=== PATIENT | female | born 1990 | race Caucasian/White ===

== ENCOUNTER → 2017-04-01 15:52 | Outpatient (CLI) | payer OTHER, SELFPAY | PROVIDERS: Visit Provider Obstetrics & Gynecology | DX: M54.5 Low back pain (principal); R30.0 Dysuria | CPT/HCPCS: 87086 ==

== ENCOUNTER → 2017-06-14 08:58 | Outpatient (CLI) | payer OTHER, SELFPAY ==
[2017-06-14 10:48] LABS: Hematocrit 32.5 % (37-47); Hemoglobin 10.6 g/dl (12.0-15.0); Mean Corp Hgb Conc 32.6 g/gl (32-36); Mean Corpuscular Hgb 30.6 pg (27.0-32.0); Mean Corpuscular Volume 93.9 fL (81-99); Mean Platelet Vol. 9.1 fl (6.2-12.0); Platelet Count 249 K/mm3 (150-450); RBC Distribution Width CV 12.5 % (11.6-14.6); RBC Distribution Width SD 41.7 fl (35.1-43.9); Red Blood Count 3.46 M/mm3 (4.2-5.4); White Blood Count 10.7 K/mm3 (4.4-11.0)
[2017-06-14 10:49] LABS: Scan Indicated on CBC? Y/N NO
[2017-06-14 10:54] LABS: Glucose Challenge Gest 1H 50g 85 mg/dL (70-140)
== END ==
PROVIDERS: Visit Provider Obstetrics & Gynecology
DX: Z34.83 Encounter for supervision of other normal pregnancy, third trimester (principal)
CPT/HCPCS: 36415; 82950; 85027

== ENCOUNTER → 2017-07-14 17:15 | Outpatient (CLI) | payer OTHER, SELFPAY ==
--- NOTE | 2017-07-14 17:15 | DT_ITS ---
This patient was seen during an EMR downtime July 12, 2017 - July 19, 2017. This patient may have a combination of paper and electronic documentation or all paper documentation. All documentation is viewable within the e-chart portion of [facility] for each patient visit.
[2017-07-17 06:45] LABS: ROM Internal Control Test YES-OK TO RESULT pt. (Internal QC); ROM Patient Test Negative (Negative)
== END ==
PROVIDERS: Family Provider Internal Medicine; PCP Internal Medicine; Visit Provider Obstetrics & Gynecology
DX: O47.9 False labor, unspecified (principal); Z3A.00 Weeks of gestation of pregnancy not specified
CPT/HCPCS: 59025; 59050; 84112; 99218; G0378

== ENCOUNTER → 2017-07-28 14:00 | Outpatient (CLI) | payer OTHER, SELFPAY ==
[2017-07-28 16:59] LABS: Group B Strep DNA By PCR POSITIVE (Negative); Probe Check PASS
== END ==
PROVIDERS: Visit Provider Obstetrics & Gynecology
DX: Z36.85 Encounter for antenatal screening for Streptococcus B (principal)
CPT/HCPCS: 87653

== ENCOUNTER 2017-08-23 14:10 | Inpatient (IN) | payer SELFPAY ==
[2017-08-23 14:32] VITALS: BMI 32.8
[2017-08-23] MEDS: Lactated Ringers 1,000 ML 50 ML IV (14:45)
[2017-08-23 15:01] LABS: Hematocrit 35.9 % (37-47); Hemoglobin 12.1 g/dl (12.0-15.0); Mean Corp Hgb Conc 33.7 g/gl (32-36); Mean Corpuscular Hgb 31.1 pg (27.0-32.0); Mean Corpuscular Volume 92.3 fL (81-99); Mean Platelet Vol. 9.9 fl (6.2-12.0); Platelet Count 213 K/mm3 (150-450); RBC Distribution Width CV 16.2 % (11.6-14.6); RBC Distribution Width SD 53.5 fl (35.1-43.9); Red Blood Count 3.89 M/mm3 (4.2-5.4); White Blood Count 11.7 K/mm3 (4.4-11.0)
[2017-08-23 15:02] LABS: Scan Indicated on CBC? Y/N NO
[2017-08-23] MEDS: Nalbuphine 10 MG/ML Ampul IV (15:13)
[2017-08-23] MEDS: Oxytocin 30 units/NS 500 ml 30 UNITS/500 ML IV.SOLN 334 UNITS IV (16:24)
[2017-08-23] MEDS: Oxytocin 30 units/NS 500 ml 30 UNITS/500 ML IV.SOLN 167 UNITS IV (16:55)
[2017-08-23] MEDS: 0.9% Saline Lock 10 ML Syringe IV (17:59)
[2017-08-23 20:05] VITALS: BP 125/61; PULSE 92; RESP 16; TEMP 36.3
[2017-08-24 00:10] VITALS: BP 118/70; PULSE 86; RESP 16; TEMP 36.4
[2017-08-24 04:05] VITALS: BP 124/58; PULSE 96; RESP 16; TEMP 36.2
[2017-08-24 08:00] VITALS: BP 114/69; PULSE 84; RESP 20; TEMP 36.7
[2017-08-24] MEDS: Prenatal Vits Tablet 1 TABLET PO (08:24)
[2017-08-24] MEDS: Ibuprofen 600 MG Tablet PO ×2 (08:24→21:41)
[2017-08-24] MEDS: Senna/Docusate Sodium 1 Tablet PO (08:24)
[2017-08-24] MEDS: Ferrous Sulfate 325 MG Tablet PO (08:26)
--- NOTE | 2017-08-24 10:10 | PCM.PN.OB ---
Subjective: PPD#1 GBS positive. Doing well. Plans to take pain med. Nursing. Pain is not severe. Plans to stay until tomorrow as GBS not adequately prophylaxed in labor. - Physical Exam General: Alert, Oriented x3, Cooperative, No apparent distress HEENT: Atraumatic Abdomen: Soft - Fundus firm NT at umbilicus Neurological: Cranial nerves II-XII grossly intact Psych/Mental Status: Normal Affect Vital Signs Temp Pulse Resp BP 97.1 F L 96 16 124/58 H 08/24/17 04:05 08/24/17 04:05 08/24/17 04:05 08/24/17 04:05 Oxygen Delivery Method Room Air Weight: 95.254 kg Body Mass Index (BMI) 32.8 Intake and Output for Last 24 Hours 08/22/17 08/23/17 08/24/17 23:59 23:59 23:59 Intake Total 573 / 573 Output Total 1200 / 1200 Balance -627 / -627 Laboratory Tests Past 24 Hrs 08/23/17 08/23/17 14:45 14:45 WBC 11.7 H RBC 3.89 L Hgb 12.1 Hct 35.9 L MCV 92.3 MCH 31.1 MCHC 33.7 RDW 16.2 H RDW Differential 53.5 H Plt Count 213 MPV 9.9 Blood Type O POSITIVE Antibody Screen NEGATIVE Medical Necessity - Tobacco Use Smoking Status: Never smoker Assessment/Plan PPD#1 Stable pp. Continue care.
[2017-08-24 14:00] VITALS: BP 115/68; PULSE 84; RESP 16; TEMP 36.9
--- NOTE | 2017-08-24 17:19 | PCM.OB.VAG ---
Vaginal Delivery Maternal Presentation: Active Labor 39 3/7 wk EGA Method of Induction: Amniotomy Amniotic Membrane Rupture Type: Artificial Amniotic Fluid Description: Clear Final SAKSHI: 08/27/17 Gestational age: 39 Weeks and 3 Days Date of Procedure: 08/23/17 Pre-Operative Diagnosis: 39 3/7 wk labor Post-Operative Diagnosis: same Surgery/ Procedure Performed: Spontaneous Vaginal Delivery Type of Anesthesia: None Description of Procedure: of a monroy viable male over intact perineum to laceration. Head delivered OA OP and nares bulb suctioned on perineum. Nuchal cord x one reduced. shoulders delivered easily. Infant to maternal abdomen with spontaneous cry. Cord clamped x two and cut. Routine cord blood for typing collected. Placenta delivered by spont expulsion, expression. 3V cord, normal appearing and intact with trailing membranes PP exam: 2nd degree vaginal laceration noted to L side, extending to perineum. 1% lidocaine infiltrated as local. Laceration repaired to hemostatic, intact with 3-0 Vicryl. EBL 350 cc Pt and tolerated delivery well. To recovery in stable condition. Presentation: Vertex Placental Delivery Description: Spontaneous Placenta Disposition: [facility] Cord Vessel Description: 3 Vessels Nuchal Cord Compression: Without compression Cord Entanglement: Around neck x 1, loose Estimated Blood Loss: 350 Infant A gender: Male (1 minute): 8 (5 minute): 9 Episiotomy Description: None Laceration: Midline, Vaginal Extension/lac, 2nd degree Medications given after delivery: IV Pitocin Complications: None
--- NOTE | 2017-08-24 17:26 | PCM.DCVAG ---
Discharge Diet: No Restrictions Discharge Activity: May Shower, May Take a Tub Bath May resume sexual activity in: 4-6 weeks Additional Activity Instructions:: Nothing in the vagina for 4-6 weeks. You may return to work/school in 6 weeks. Additional Instructions: If you experience any of the following, contact your healthcare provider. Bleeding that soaks a pad every hour for 2 hours Fever 100.4 or higher Unrelieved abdominal pain Problems urinating (including inability to urinate or burning while urinating). Visual changes Severe headache Flu-like symptoms Pain or redness in one of both of your breasts Pain, warmth, tenderness or swelling in your legs, especially the calf area Frequent nausea and vomiting Symptoms of depression or anxiety If you experience any of the following, call 911 or go to the nearest Emergency Room. Chest pain Problems breathing Seizure activity Partial or complete paralysis of a body part, slurred speech, weakness or drooping of the face, or a sudden inability to walk or hold your balance Allergies/Adverse Reactions: Allergies No Known Allergies Allergy (Verified 11/25/13 07:00) Medications to take at Discharge Ferrous Sulfate [Iron] 325 mg PO DAILY 08/23/17 Vits [Prenatabs FA] 1 tablet PO DAILY 08/23/17 Please Follow Up With: Zoie Davidson MD - [phone] When: Call to make an appointment with your doctor in 6 weeks. Primary Care Physician: Ana Cohen DO [Primary Care Provider] - Test Results: Test results from this visit will be discussed in further detail at your follow-up appointment, if applicable. Proposed Discharge Date: 08/25/17
--- NOTE | 2017-08-24 17:27 | DCINST_ITS ---
Discharge Diet: No Restrictions Discharge Activity: May Shower, May Take a Tub Bath May resume sexual activity in: 4-6 weeks Additional Activity Instructions:: Nothing in the vagina for 4-6 weeks. You may return to work/school in 6 weeks. Additional Instructions: If you experience any of the following, contact your healthcare provider. * Bleeding that soaks a pad every hour for 2 hours * Fever 100.4 or higher * Unrelieved abdominal pain * Problems urinating (including inability to urinate or burning while urinating) . * Visual changes * Severe headache * Flu-like symptoms * Pain or redness in one of both of your breasts * Pain, warmth, tenderness or swelling in your legs, especially the calf area * Frequent nausea and vomiting * Symptoms of depression or anxiety If you experience any of the following, call 911 or go to the nearest Emergency Room. * Chest pain * Problems breathing * Seizure activity * Partial or complete paralysis of a body part, slurred speech, weakness or drooping of the face, or a sudden inability to walk or hold your balance Allergies/Adverse Reactions: Allergies No Known Allergies Allergy (Verified 11/25/13 07:00) Medications to take at Discharge Ferrous Sulfate [Iron] 325 mg PO DAILY 08/23/17 Vits [Prenatabs FA] 1 tablet PO DAILY 08/23/17 Please Follow Up With: Zoie Davidson MD - [phone] When: Call to make an appointment with your doctor in 6 weeks. Primary Care Physician: Ana Cohen DO [Primary Care Provider] - Test Results: Test results from this visit will be discussed in further detail at your follow- up appointment, if applicable. Proposed Discharge Date: 08/25/17
[2017-08-24 21:25] VITALS: BP 118/71; PULSE 96; RESP 16; TEMP 36.3
[2017-08-25 02:45] VITALS: BP 114/61; PULSE 77; RESP 16; TEMP 36.2
[2017-08-25 07:38] VITALS: BP 111/66; PULSE 85; RESP 16; TEMP 36.4
[2017-08-25] MEDS: Ibuprofen 600 MG Tablet PO (07:59)
[2017-08-25] MEDS: Ferrous Sulfate 325 MG Tablet PO (08:00)
--- NOTE | 2017-08-25 08:21 | PCM.PN.OB ---
Subjective: PPD#2 GBS positive and inadequate time for prophylaxis Doing well. Baby is waking a little better to nurse. Minimal pain. Feeling well and ready to go home today. - Physical Exam General: Alert, Oriented x3, Cooperative, No apparent distress HEENT: Atraumatic Neck: Supple Abdomen: Soft - Fundus firm NT at umbilicus Neurological: Cranial nerves II-XII grossly intact Psych/Mental Status: Normal Affect Vital Signs Temp Pulse Resp BP 97.5 F L 85 16 111/66 08/25/17 07:38 08/25/17 07:38 08/25/17 07:38 08/25/17 07:38 Oxygen Delivery Method Room Air Weight: 95.254 kg Body Mass Index (BMI) 32.8 Intake and Output for Last 24 Hours 08/23/17 08/24/17 08/25/17 23:59 23:59 23:59 Intake Total 573 / 573 Output Total 1200 / 1200 Balance -627 / -627 Medical Necessity - Tobacco Use Smoking Status: Never smoker Assessment/Plan PPD#2 Stable pp. Dischg home today. RTO in 6 wk for pp check.
[2017-08-25] MEDS: Prenatal Vits Tablet 1 TABLET PO (12:03)
[2017-08-25 14:20] VITALS: BP 116/74; PULSE 80; RESP 14; TEMP 36.3; O2SAT 98
== END 2017-08-25 14:55 | disposition home or self-care (01) | DRG 775 ==
PROVIDERS: Obstetrics & Gynecology; Admitting Provider Obstetrics & Gynecology; Family Provider Internal Medicine; PCP Internal Medicine; Visit Provider Obstetrics & Gynecology
DX: O70.1 Second degree perineal laceration during delivery (principal); O69.81X0 Labor and delivery complicated by cord around neck, without compression, not applicable or unspecified; O99.02 Anemia complicating childbirth; D64.9 Anemia, unspecified; O99.824 Streptococcus B carrier state complicating childbirth; Z87.59 Personal history of other complications of pregnancy, childbirth and the puerperium; Z3A.39 39 weeks gestation of pregnancy; Z37.0 Single live birth
CPT/HCPCS: 59050; 85027; 86850; 86900; 99218; J7120; A4216; G0378

== ENCOUNTER → 2018-08-16 16:41 | Outpatient (CLI) | payer OTHER, SELFPAY ==
--- NOTE | 2018-08-16 17:30 | MRI_ITS ---
HISTORY:LEFT ankle ST mass just behind lateral mallelous. Present x 1 year with an increase in pain and size MRI EXAMINATION OF THE Left ANKLE COMPARISON: none TECHNIQUE: Axial T1-T2 and oblique axial, sagittal STIR, T1 and coronal fat-suppressed T2. The patient was administered 15 cc of dotarem intravenously and postcontrast fat-suppressed T1-weighted axial and sagittal images were obtained # of images including paperwork:240 FINDINGS: BONES; No fracture, contrusion, bone marrow edema, or bone marrow neoplasm TIBIOTALAR JOINT: No tibiotalar joint effusion. Osteochondral surfaces of the tibiotalar joint are unremarkable. No loose bodies. There is a septated fluid collection that is seen posterior to the posterior process of the talus. This may be contiguous with fluid from the tibiotalar joint. This area measures approximately 2.5 cm craniocaudad by approximately 2.1 cm transverse and approximately 1.6 cm AP. There is no associated enhancement. These findings are most compatible with a ganglion cyst SUBTALAR JOINT: There is a small subtalar joint effusion. Osteochondral sufaces are intact. No loose bodies. OTHER TARSAL JOINTS: The remainter of the visualized joint of the hindfoot and midfoot show no narrowing or effusion. LIGAMENTS: The anterior tibiofibular ligament is intact. The posterior tlbiofilular ligament is intact The anterior talofibular ligament is intact. The posterior talofibular ligament is intact. The calcaneofibular ligament is intact. The spring ligament is intact The deltoid ligaments are intact. The ligaments of the tarasal sinus are intact. TENDONS: The visualized extensor tendons are intact as are the flexor tendons. The peroneal tendons are intact. The peroneal retinaculum is intact The Achilles tendon is intact PLANTAR APONEUROSIS: The plantar aponeurosis is unremarkable. NEUROVASCULAR STRUCTURES: The posterior tibial neurovascular bundle appears normal, without intinsic or extrinsic masses or foci or signal alteration. IMPRESSION: Findings compatible with ganglion cyst posterior to the posterior process of the talus and the proximal lateral calcaneus. at 1348 Reported and signed by: Elisa Mandujano DO Electronically Signed: Elisa Mandujano DO at 22:17 EDT Tel , Service support , MRI/Lower Ext Joint Only W/WO Cont
== END ==
PROVIDERS: Family Provider Internal Medicine; PCP Internal Medicine; Referring Provider Physician Assistant Surgical; Visit Provider Physician Assistant Surgical
DX: R22.42 Localized swelling, mass and lump, left lower limb (principal)
CPT/HCPCS: 73723; A9575

== ENCOUNTER 2021-11-28 09:12 | Emergency (ER) | payer OTHER, SELFPAY ==
[2021-11-28 09:13] VITALS: BP 132/73; PULSE 104; RESP 17; TEMP 36.6; O2SAT 100; BMI 28.3
[2021-11-28 09:49] LABS: Bacteria 0 SEEN /hpf (None Seen); Mucous, Urine 0 SEEN /hpf (<or=2+); Red Blood Cells-Urine 0 SEEN /hpf (0-5); White Blood Cells 0 SEEN /hpf (0-5)
--- NOTE | 2021-11-28 09:51 | US_ITS ---
STUDY: ULTRASOUND TRANSVAGINAL CLINICAL: Female, 31 years old. Pelvic pain TECHNIQUE: Transvaginal COMPARISON: None. FINDINGS: Normal uterine size measuring 8.6 cm in maximal craniocaudal dimension. There are no myometrial masses, uterus is retroflexed. Normal endometrial thickness measuring 14.3 mm, and heterogeneous. There are no endometrial masses, and there is no fluid in the endometrial cavity. Normal uterine cervix. Normal right ovary, measuring 5.4 x 4.1 x 2.9 cm. There is a complex, likely hemorrhagic 4.1 x 2.9 x 2.9 cm cyst. Normal left ovary, measuring 3.8 x 2.8 x 2.9 cm. There are multiple follicles without a dominant cyst. There are dilated serpiginous vessels in the adnexal regions which suggest pelvic congestion. There is no free fluid in the pelvis. Bladder was incompletely distended US/Transvaginal Non- IMPRESSION: Retroflexed uterus with heterogeneous endometrium measuring 14.3 mm but this is still within normal range for a patient of this age. Complex, likely hemorrhagic 4.1 x 2.9 x 2.9 cm right adnexal cyst, no specific follow-up needed given the patient''s age. No demonstrated free fluid Electronically Signed: Casper Goss MD at 11:00 EDT ,
--- NOTE | 2021-11-28 09:51 | EDS_ITS ---
HPI HPI - GI History of Present Illness Chief Complaint: Abd Pain Narrative Narrative: 31-year-old female with right lower abdominal pain. She states it started on Wednesday. She describes it is episodic. She gets waves of pain with start in the right lower abdomen and radiate to the back. At times she is completely pain-free. She does not get sweaty or nauseous with the symptoms. Today she states it doubled her over. She denies constipation or diarrhea. She denies urinary or vaginal complaints. She denies fever, chills. She states her last menstrual period was about 3 weeks ago. They went on time and normal. Patient states that she is monogamous with her and is currently trying to have a baby for about a year. PFSH PFSH Medical History no medical history Home Medications ferrous sulfate 325 mg (65 mg iron) tablet (Iron (ferrous sulfate)) 325 mg PO DAILY anemia 08/23/17 [History Last Taken 08/22/17 10:00] vits,calcium no.78-iron fumarate-folic acid 29 mg-1 mg tablet (Prenatabs FA) 1 tab PO DAILY 08/23/17 [History Last Taken 08/22/17 10:00] Allergy/AdvReac Type Severity Reaction Status Date / Time No Known Allergies Allergy Verified 11/28/21 09:12 Surgical History no surgical history Social History Smoking Status: Never smoker ROS ROS ED Constitutional Constitutional ED: Denies chills or fever(s) ENT ENT ED: Denies rhinorrhea or sore throat Cardiovascular Cardiovascular: Denies chest pain or palpitations Respiratory/Chest Respiratory/Chest: Denies cough or dyspnea Gastrointestinal Gastrointestinal: Reports abdominal pain; Denies constipation Genitourinary Genitourinary ED: Denies dysuria or hematuria Musculoskeletal Musculoskeletal: Denies arthralgias or back pain Integumentary Denies abscess or Abrasions Neurologic Neurologic: Denies headache(s) or paresthesias Psychiatric Psychiatric: Denies anxiety or depression EXAM Physical Exam Const Vital Signs: 11/28/21 09:13 Temperature 97.8 F Temperature Source Temporal Pulse Rate 104 H Respiratory Rate 17 Blood Pressure 132/73 H Blood Pressure Mean 92 Pulse Ox 100 Oxygen Delivery Method Room Air Positive well nourished General Appearance ED: NAD; Negative for pallor HEENT Reports moist mucous membranes and dry mucous membranes normocephalic and atraumatic Mouth ED: Yes dry mucous membranes Mouth: dry mucous membranes Eyes PERRL and EOMs intact bilaterally Neck no lymphadenopathy Resp normal respiratory effort and clear to auscultation bilaterally Cardio regular rate and regular rhythm GI Palpation: tender RLQ and suprapubic Back/Spine no CVA tenderness Neuro CN's II-XII intact bilaterally, moves all extremities and no sensory deficits noted Sensorium / Orientation: alert Psych mental status grossly normal Skin no wounds General Skin Exam: Negative for jaundice or pallor MDM MDM MDM Narrative Medical decision making narrative: Patient seen and evaluated for abdominal pain. Initially she did not want anything for pain. She later requested some Toradol which was given. CBC and CMP are unremarkable. Lipase is normal. Urinalysis negative for infection. Serum hCG negative. Transvaginal ultrasound showed a complex, likely hemorrhagic 4.1 x 2.9 x 2.9 cm right adnexal cyst. Patient informed of this. Patient counseled to alternate Tylenol and ibuprofen as needed. She can follow- up with gynecology. Return precautions discussed. Impression: 1. Abdominal pain 2. Ovarian cyst Lab Data Attestation: I reviewed the patient's lab results. Labs: Laboratory Results - last 24 hr 11/28/21 11/28/21 11/28/21 09:37 09:40 09:40 WBC 6.7 RBC 4.45 Hgb 13.7 Hct 41.9 MCV 94.2 MCH 30.8 MCHC 32.7 RDW Std Deviation 42.8 RDW Coeff of Espinoza 12.2 Plt Count 166 MPV 10.1 Immature Gran % (Auto) 0.300 Neut % (Auto) 66.8 Lymph % (Auto) 21.9 [place] % (Auto) 9.1 Eos % (Auto) 1.3 Baso % (Auto) 0.6 Absolute Neuts (auto) 4.5 Absolute Lymphs (auto) 1.47 Nucleated RBC % 0 Sodium 140 Potassium 4.1 Chloride 107 Carbon Dioxide 28.0 Anion Gap 5 BUN 11 Creatinine 0.92 Estim Creat Clear Calc 83.70 Est GFR (MDRD) Af Amer 92 Est GFR (MDRD) Non-Af 76 BUN/Creatinine Ratio 12.0 Glucose 89 Calcium 9.1 Total Bilirubin 1.90 H AST 12 L ALT 19 Alkaline Phosphatase 44 L Total Protein 7.8 Albumin 4.1 Globulin 3.7 Albumin/Globulin Ratio 1.1 Lipase 172 Serum , Qual Urine Color Straw Urine Clarity Clear Urine pH 7.0 Ur Specific [place] 1.005 Urine Protein Negative Urine Glucose (UA) Normal Urine Ketones Negative Urine Occult Blood Negative Urine Nitrite Negative Urine Bilirubin Negative Urine Urobilinogen Normal Ur Leukocyte Esterase Negative Urine RBC 0 SEEN Urine WBC 0 SEEN Ur Squamous Epith Cells 0-5 SEEN Urine Bacteria 0 SEEN Urine Mucus 0 SEEN 11/28/21 09:40 WBC RBC Hgb Hct MCV MCH MCHC RDW Std Deviation RDW Coeff of [place]inoza Plt Count MPV Immature Gran % (Auto) Neut % (Auto) Lymph % (Auto) [place] % (Auto) Eos % (Auto) Baso % (Auto) Absolute Neuts (auto) Absolute Lymphs (auto) Nucleated RBC % Sodium Potassium Chloride Carbon Dioxide Anion Gap BUN Creatinine Estim Creat Clear Calc Est GFR (MDRD) Af Amer Est GFR (MDRD) Non-Af BUN/Creatinine Ratio Glucose Calcium Total Bilirubin AST ALT Alkaline Phosphatase Total Protein Albumin Globulin Albumin/Globulin Ratio Lipase Serum , Qual NEGATIVE Urine Color Urine Clarity Urine pH Ur Specific [place] Urine Protein Urine Glucose (UA) Urine Ketones Urine Occult Blood Urine Nitrite Urine Bilirubin Urine Urobilinogen Ur Leukocyte Esterase Urine RBC Urine WBC Ur Squamous Epith Cells Urine Bacteria Urine Mucus Radiography Diagnostic Testing: Clinical Impression(s) from Imaging Studies Transvaginal US 11/28/21 09:51 IMPRESSION: Retroflexed uterus with heterogeneous endometrium measuring 14.3 mm but this is still within normal range for a patient of this age. Complex, likely hemorrhagic 4.1 x 2.9 x 2.9 cm right adnexal cyst, no specific follow-up needed given the patient''s age. No demonstrated free fluid Electronically Signed: Casper Goss MD at 11:00 EDT [place] Location ID and State: [facility] / [place] , Service support , Discharge Plan Triage Chief Complaint: Abd Pain ED Provider: Rony Nicholson Dx/Rx/DC Orders Instructions: ED Ovarian Cyst Prescriptions: No Action ferrous sulfate [Iron (ferrous sulfate)] 325 MG tablet 325 mg PO DAILY [id number] [Prenatabs FA] 1 TABLET tablet 1 tab PO DAILY Primary Care Provider: Ana Cohen Referrals: Ana Cohen DO [Primary Care Provider] - Disposition Disposition: Home, Self Care
[2021-11-28 09:59] LABS: Color, Urine Straw (Yellow); Glucose, Dipstick Normal (Normal); Ketone-Dipstick Negative (Negative); Leukocyte Esterase-Dipstick Negative /ul (Negative); Nitrite-Dipstick Negative (Negative); Occult Blood-Urine Negative /ul (Negative); Protein-Dipstick Negative (Negative); Specific Gravity, Urine 1.005 (1.002-1.030); Urine Bilirubin Dipstick Negative (Negative); Urine Clarity Clear (Clear); Urine Urobilinogen Normal (Normal)
[2021-11-28 10:00] LABS: Absolute Lymphocyte Count 1.47 X10^3/uL (0.83-4.51); Absolute Neutrophil Count 4.5 X10^3/uL (2.0-7.7); Basophil# 0.04 X10^3/uL; Basophil% 0.6 % (0-1); Eosinophil# 0.09 X10^3/uL; Eosinophils% 1.3 % (0-5); Hematocrit 41.9 % (37-47); Hemoglobin 13.7 g/dL (12.0-15.0); Lymphocyte # 1.47 X10^3/ul (0.83-4.51); Lymphocyte % 21.9 % (19-41); Mean Corp Hgb Conc 32.7 g/dL (32-36); Mean Corpuscular Hgb 30.8 pg (27.0-32.0); Mean Corpuscular Volume 94.2 fL (81-99); Mean Platelet Vol. 10.1 fl (6.2-12.0); Monocyte# 0.61 X10^3/uL; Monocyte% 9.1 % (0-10); NRBC Flagged by Analyzer 0 % (0-5); Neutrophil # 4.47 X10^3/uL (2.7-7.7); Neutrophil % 66.8 % (47-70); Platelet Count 166 K/mm3 (150-450); RBC Distribution Width CV 12.2 % (11.6-14.6); RBC Distribution Width SD 42.8 fl (35.1-43.9); Red Blood Count 4.45 M/mm3 (4.2-5.4); White Blood Count 6.7 K/mm3 (4.4-11.0)
[2021-11-28 10:06] LABS: ALB/GLOB Ratio 1.1 RATIO (0.9-2.4); AST(SGOT) 12 U/L (15-37); Alanine Aminotransfer ALT/SGPT 19 U/L (13-56); Albumin, Serum 4.1 g/dL (3.2-5.0); Alkaline Phosphatase 44 U/L (45-117); Anion Gap 5 (5-15); BUN 11 mg/dL (7-18); Calcium,Total 9.1 mg/dL (8.5-10.1); Chloride 107 mmol/L (98-107); Creatinine, Serum 0.92 mg/dL (0.55-1.02); EST Glomerular Filtration Rate 76 mL/min (>60); Est Glom Filt Rate - Afr Amer 92 mL/min (>60); Globulin 3.7 g/dL (2.2-4.2); Glucose 89 mg/dL (74-106); Lipase 172 U/L (73-393); Potassium 4.1 mmol/L (3.5-5.1); Protein, Total 7.8 g/dL (6.4-8.2); Sodium Level 140 mmol/L (136-145)
[2021-11-28 10:12] LABS: Internal QC Validated? YES +Cl - CLEAR BKGD; Pregnancy, Serum, hCG Quali. NEGATIVE Negative
[2021-11-28 10:23] LABS: Squamous Epithelial Cells - UA 0-5 SEEN /hpf (5-10)
--- NOTE | 2021-11-28 11:35 | ED.RN ---
PT STATES PAIN HAS NOW DISSIPATED. DOES NOT WANT PAIN MEDICATION
[2021-11-28 12:34] VITALS: RESP 16
== END 2021-11-28 12:36 | disposition home or self-care (01) ==
PROVIDERS: Emergency Provider Student in an Organized Health Care Education/Training Program; PCP Internal Medicine; Visit Provider Student in an Organized Health Care Education/Training Program
DX: N83.201 Unspecified ovarian cyst, right side (principal)
CPT/HCPCS: 76830; 80053; 81001; 83690; 84703; 85025; 93976; 99283; A4216

== ENCOUNTER → 2023-08-30 | Outpatient (CLI) | payer OTHER, SELFPAY ==
[2023-09-03 12:10] LABS: HPV APTIMA, High Risk Negative (Negative)
== END | disposition home or self-care (01) ==
LOC: LABSPEC 15:42
PROVIDERS: PCP Internal Medicine; Referring Provider Nurse Practitioner Family; Visit Provider Nurse Practitioner Family
DX: Z12.4 Encounter for screening for malignant neoplasm of cervix (principal)
CPT/HCPCS: 87624; 88175; G0145

== ENCOUNTER → 2023-12-30 | Outpatient (CLI) | payer SELFPAY, OTHER ==
--- NOTE | 2023-12-30 14:16 | US_ITS ---
EXAM: US PELVIS TRANSABDOMINAL AND TRANSVAGINAL, COMPLETE CLINICAL INDICATION: history of ovaria cyst TECHNIQUE: Transabdominal and endovaginal pelvic ultrasound was performed with grayscale and color Doppler imaging. Endovaginal imaging was used for better evaluation of the endometrium and adnexa. COMPARISON: No relevant prior studies available. FINDINGS: UTERUS/CERVIX: Uterus measures 9.2 x 6.4 x 6.0 cm and is retroflexed. Endometrial thickness is 12 mm. RIGHT OVARY: Normal. Blood flow is present in the right ovary. The right ovary measures 4.2 x 2.7 x 2.3 cm. LEFT OVARY: Normal. Blood flow is present in the left ovary. The left ovary measures 3.3 x 2.5 x 2.2 cm. FREE FLUID: Physiological amount of free fluid noted within the pelvis. US/Pelvic w/ Transvaginal IMPRESSION: Retroflexed uterus. Otherwise normal uterus and ovaries. Electronically Signed: Manny Torres MD at 17:05 EST ,
== END | disposition home or self-care (01) ==
LOC: US 14:16
PROVIDERS: PCP Internal Medicine; Referring Provider Nurse Practitioner Family; Visit Provider Nurse Practitioner Family
DX: N83.209 Unspecified ovarian cyst, unspecified side (principal)
CPT/HCPCS: 76830; 76856